=== PATIENT | male | born 1940 | race Caucasian/White ===

== ENCOUNTER 2016-05-31 10:07 | Emergency (ER) | payer MEDICARE, BC ==
[2016-05-31 10:26] VITALS: BP 129/63
--- NOTE | 2016-05-31 10:41 | EDM.PDOC ---
ED HPI Allergic Reaction - General Chief Complaint: Allergic Reaction Stated Complaint: rash/swelling Time Seen by Provider: 05/31/16 10:30 Source of Information: Reports: Patient History Limitations: Reports: No limitations - History of Present Illness INITIAL COMMENTS - FREE TEXT/NARRATIVE: The patient presents with an itchy maculopapular rash that began on Monday and continued to worsen until today. He had a cystoscopy at [facility] in [place] on 05/27/2016 and was given Keflex and after the first dose he began to develop an "itchy red rash" that has worsened. He called to discuss with the prescribing physician and was instructed to go to ER for evaluation. - Related Data Allergies/ADRs: Allergies Allergy/AdvReac Type Severity Reaction Status Date / Time cephalexin [From Keflex] Allergy Rash Verified 05/31/16 10:34 Home Meds: Home Meds Cephalexin 500 mg PO TID 05/31/16 [History] Hydrocodone/Acetaminophen [[place] 5-325] 1 - 2 tab PO Q4H PRN 05/31/16 [History] Tamsulosin [Flomax] 0.4 mg PO DAILY 05/31/16 [History] Triamcinolone Acetonide [Triamcinolone Acetonide 0.1% Crm] 1 applic TOP BID [History] Past Medical History Genitourinary History: Reports: BPH Social & Family History - Tobacco Use Smoking Status *Q: Former Smoker Used Tobacco, but Quit: Yes Month Tobacco Last Used: unknown - Caffeine Use Caffeine Use: Reports: Coffee - Recreational Drug Use Recreational Drug Use: No ED ROS ALLERGIC REACTION - Review of Systems Review Of Systems: ROS reveals no pertinent complaints other than HPI. ED EXAM GENERAL NO PERIP PULSE - Physical Exam Exam: See Below Exam Limited By: No limitations General Appearance: alert, WD/WN, no apparent distress Eye Exam: bilateral eye: EOMI, normal inspection, PERRL Ears: normal external exam, normal canal, hearing grossly normal, normal TMs Nose: normal inspection, normal mucosa, no blood Throat/Mouth: Normal inspection, Normal lips, Normal teeth, Normal gums, Normal oropharynx, Normal voice, No airway compromise Head: atraumatic, normocephalic Neck: normal inspection, supple, non-tender, lymphadenopathy (L) Respiratory/Chest: no respiratory distress, lungs clear, normal breath sounds, no accessory muscle use, chest non-tender Cardiovascular: normal peripheral pulses, regular rate, rhythm, no edema, no gallop, no murmur, no rub GI/Abdominal: normal bowel sounds, soft, non tender, no organomegaly, no distention, no abnormal bruit Back Exam: normal inspection, full range of motion. No: CVA tenderness (L), CVA tenderness (R), paraspinal tenderness, vertebral tenderness Extremities: normal inspection, normal range of motion, non-tender, no pedal edema, normal capillary refill Neurological: alert, oriented, CN II-XII intact, normal cognition, normal gait, normal reflexes, no motor/sensory deficits Psychiatric: normal affect, normal mood Skin Exam: Warm, Dry, Intact, Normal color, Rash (Erythematous pruritic macular rash on arms, back, chest, abdomen, and legs. Spares face and neck and palms and soles. ) Lymphatic: no adenopathy Course - Vital Signs Last Recorded V/S: Last Vital Signs Temp 37.1 C 05/31/16 10:23 Pulse 81 05/31/16 10:23 Resp 18 05/31/16 10:23 BP 129/63 05/31/16 10:23 Pulse Ox 97 05/31/16 10:23 - Orders/Labs/Meds Orders: Active Orders 24 hr Category Date Time Status diphenhydrAMINE [Benadryl] Med 05/31/16 10:44 Once 25 mg PO ONETIME ONE Medication Orders Diphenhydramine HCl (Benadryl) 25 mg PO ONETIME ONE Stop: 05/31/16 10:45 Meds: Medications Generic Name Dose Route Start Last Admin Trade Name Freq PRN Reason Stop Dose Admin Diphenhydramine HCl 25 mg 05/31/16 10:44 Benadryl PO 05/31/16 10:45 ONETIME ONE Discontinued Medications Generic Name Dose Route Start Last Admin Trade Name Freq PRN Reason Stop Dose Admin Methylprednisolone Sodium Succinate 80 mg 05/31/16 10:44 Solu-Medrol IM 05/31/16 10:45 ONETIME ONE Departure - Departure Time of Disposition: 10:36 Disposition: Home, Self-Care 01 Clinical Impression: Maculopapular rash, generalized, Allergic drug rash Instructions: Drug Rash, Drug Allergy Referrals: Marylin Borjas PA [Primary Care Provider] - Additional Instructions: 1. Solumedrol 80 mg IM in ER. 2. Benadryl 25 mg PO in ER. 3. Prescription for Medrol dose pack to begin 06/01/2016. 4. OTC diphenhydramine (Benadryl) 25 mg every 6 hours as needed for itching and irritation. 5. Followup with PCP in 3-5 days if symptoms persist or sooner if symptoms worsen. 6. Return to ER with increased/refractory/severe rash, difficulty breathing, swelling of throat or tongue, or other emergent concerns. - My Orders Last 24 Hours: My Active Orders 05/31/16 10:44 diphenhydrAMINE [Benadryl] 25 mg PO ONETIME ONE - Assessment/Plan Last 24 Hours: My Active Orders 05/31/16 10:44 diphenhydrAMINE [Benadryl] 25 mg PO ONETIME ONE Assessment:: Allergic reaction to Keflex with Generalized Maculopapular Rash Plan: 1. Solumedrol 80 mg IM in ER. 2. Benadryl 25 mg PO in ER. 3. Prescription for Medrol dose pack to begin 06/01/2016. 4. OTC diphenhydramine (Benadryl) 25 mg every 6 hours as needed for itching and irritation. 5. Followup with PCP in 3-5 days if symptoms persist or sooner if symptoms worsen. 6. Return to ER with increased/refractory/severe rash, difficulty breathing, swelling of throat or tongue, or other emergent concerns.
[2016-05-31] MEDS ORDERED: methylPREDNISolone Sodium Succinate 40 MG/1 ML SDV IM ONE (10:44)
[2016-05-31] MEDS ORDERED: diphenhydrAMINE 25 MG Cap PO ONE (10:44)
== END 2016-05-31 11:25 | disposition home or self-care (01) ==
LOC: LL.ED 10:07
DX: R21 Rash and other nonspecific skin eruption (principal); T36.1X5A Adverse effect of cephalosporins and other beta-lactam antibiotics, initial encounter; Z88.1 Allergy status to other antibiotic agents; Z79.899 Other long term (current) drug therapy; Z87.891 Personal history of nicotine dependence
CPT/HCPCS: 96372; 99283; A9270; J2920